=== PATIENT | female | born 1965 | race Caucasian/White ===

== ENCOUNTER 2020-06-10 22:19 | Emergency (ER) | payer OTHER ==
[~2020-06-10] VITALS: Ht 162.6 cm; Wt 49.5 kg
[2020-06-10 22:36] VITALS: BP 93/64
[2020-06-10] MEDS ORDERED: LORazepam 1 MG tablet PO ONE (22:45)
[2020-06-10] MEDS ORDERED: ondansetron 4mg rapidly disintigrating tab PO ONE (22:45)
[2020-06-10] MEDS ORDERED: HYDROcodone/acetaminophen 5mg/325mg tablet PO ONE (22:45)
== END 2020-06-10 22:54 | disposition home or self-care (01) ==
LOC: ER 22:20
DX: S16.1XXA Strain of muscle, fascia and tendon at neck level, initial encounter (principal); S46.912A Strain of unspecified muscle, fascia and tendon at shoulder and upper arm level, left arm, initial encounter; F17.200 Nicotine dependence, unspecified, uncomplicated; F12.10 Cannabis abuse, uncomplicated; I10 Essential (primary) hypertension; Z88.0 Allergy status to penicillin; W18.39XA Other fall on same level, initial encounter; Y93.89 Activity, other specified; Y92.89 Other specified places as the place of occurrence of the external cause; Y99.8 Other external cause status
CPT/HCPCS: 99284

== ENCOUNTER 2021-05-15 08:06 | Emergency (ER) | payer BC, OTHER ==
[~2021-05-15] VITALS: Ht 162.6 cm; Wt 50.0 kg
[2021-05-15 08:18] VITALS: BP 147/85
[2021-05-15] MEDS ORDERED: ketorolac trometh. 30mg/ml inj. IM ONE (08:25)
[2021-05-15] MEDS ORDERED: IBUP-1984 PO (08:27)
== END 2021-05-15 13:44 | disposition home or self-care (01) ==
LOC: ER 08:07
DX: M25.561 Pain in right knee (principal); M76.31 Iliotibial band syndrome, right leg; I10 Essential (primary) hypertension; F12.90 Cannabis use, unspecified, uncomplicated; Z98.890 Other specified postprocedural states; Z88.0 Allergy status to penicillin; Z79.899 Other long term (current) drug therapy
CPT/HCPCS: 73564; 96372; 99283; J1885